=== PATIENT | female | born 1990 | race African-American/Black ===

== ENCOUNTER 2017-03-08 01:43 | Day surgery (SDC) | payer OTHER ==
[2017-03-08 02:06] VITALS: BP 120/70; TEMP 98; BMI 25.9
[2017-03-08] MEDS ORDERED: Promethazine HCl 25 MG/ML VIAL IM/IV PRN (02:19)
[2017-03-08] MEDS ORDERED: Betamet Acet/Betamet Na Ph 30 MG/5 ML VIAL IM SCH (02:30)
[2017-03-08] MEDS ORDERED: Terbutaline Sulfate 1 MG/ML VIAL SC SCH (02:30)
[2017-03-08] MEDS ORDERED: Lactated Ringer's 1,000 ML IV SCH (02:30)
--- NOTE | 2017-03-08 03:00 | PRG ---
DATE OF SERVICE: 03/08/2017 TIME OF EVALUATION: 02:10 TIME OF DICTATION: 02:20 LOCATION: Labor and Delivery in R 6. This is a patient of Migue Smiley M.D. REASON FOR EVALUATION: Suspected contractions at 35 weeks and 5 days. HISTORY OF PRESENT ILLNESS: This is a 26-year-old G3, P2 with a due date of 04/07/2017 placing her at 35 weeks and 5 days, with a history of prior deliveries at 35 weeks and 36 weeks, who sees Dr. Zhao rowan for care. She arrives with the complaint of irregular contractions. She denies vagina l bleeding or leakage of fluid. She denies any headaches or visual changes. She denies any recent trauma. REVIEW OF SYSTEMS: Complete review of systems was done and is otherwise negative, unless specified in the HPI. PAST MEDICAL HISTORY: Negative. ALLERGIES: None. PAST SURGICAL HISTORY: Noncontributory. OBSTETRIC HISTORY: Significant for 2 prior vaginal births, 1 at 35 and the other at 36 weeks. PHYSICAL EXAMINATION: VITAL SIGNS: Her blood pressure was 106/60, heart rate 93-104, respirations are 16, temperature 98. 1. GENERAL: Clinically, she is in no acute distress. ABDOMEN: Soft and nontender and size consistent with dates. Irregular mild contractions were palpa andie. On cervical exam, she is 3-4 cm dilated, about 50% effaced, -2 station. On the external monitor, heart tones are in the 130s to 140s with moderate variability. Contractions every 3 -5 minutes. heart tones are reactive and reassuring. ASSESSMENT: This is a 26-year-old G3, P2 with a due date of 04/07/2016 placing her at 35 weeks and 5 days with possible early labor. PLAN: 1. IV hydration for now. 2. Term x1 as she is only 35 weeks and 5 days. 3. I have ordered Celestone as she is under 36 weeks and 6 days. 4. We will place in Labor and Delivery observation for now. 5. If the patient changes/make cervical progress, we will admit to Dr. Smiley. 6. For now, labor observation with a diagnosis of possible early labor.
[2017-03-08] MEDS ORDERED: Sodium Chloride 0.9% 10 ML ONE (05:12)
--- NOTE | 2017-03-08 05:20 | PRG ---
DATE OF SERVICE: 03/08/2017 FOLLOWUP CELESTONE SCHEDULED In brief, this is a patient who again we were about to release home with a diagnosis of arrested/threatened labor. She is under 36 weeks and 6 days. We did administer Celestone 12 mg x1. The second dose will be given 12 hours from the first which is anytime around [id number] today on 03/08/2017. We have discussed this with the patient. Once again, she has received 1 dose of Celestone, she will receive the second dose of Celestone today at [id number]. This is a patient of Dr. Smiley. Diagnosis is made of threatened arrested labor and we will reassess her later this afternoon when she arrives for her second Celestone injection. RONNYD
--- NOTE | 2017-03-08 12:16 | PRG ---
FOLLOWUP EXAM DATE OF SERVICE: 03/08/2017 TIME: 0505 In brief, this is a patient of Dr. Smiley, who we have been watching for threatened labor. S he is at 35 weeks and 5 days. We watched her for about 3 hours and she states that she feels better . She does not have any evidence of cervical change on exam. Repeat examination reveals a cervix t hat remains unchanged at 3-4 cm. I have reviewed the strip and the heart tones are reactive w ith moderate variability while the contractions were irregular on tocodynamometer, there is no set p attern and they have spaced out after hydration was administered. As the baby is reactive, and ther e has been no cervical globe changer 3 hours, we will discharge the patient home with follow up in [address] Smiley for repeat examination.
== END 2017-03-08 05:40 | disposition home or self-care (01) ==
LOC: L&D/OP 01:43
PROVIDERS: ATTEND Family Medicine
DX: O47.03 False labor before 37 completed weeks of gestation, third trimester (principal); Z3A.35 35 weeks gestation of pregnancy
CPT/HCPCS: 96360; 96361; 96372; 96375; A4216; J0595; J0702; J3105

== ENCOUNTER 2017-09-07 20:48 | Emergency (ER) | payer OTHER ==
[2017-09-07] MEDS ORDERED: Acetaminophen 500 MG TAB ONE (21:35)
[2017-09-07 21:50] LABS: Bilirubin Negative (Negative); Blood, Urine Negative (Negative); Clarity CLOUDY (Clear); Glucose, Urine (Dipstick) Negative (Negative); Leukocyte Small (Negative); Nitrite Negative (Negative); Protein, Urine (Dipstick) Negative (Neg-Trace); Specific Gravity, Urine 1.019 (1.002-1.036)
[2017-09-07 21:53] LABS: Bacteria/HPF None Seen HPF (None Seen); Hyaline Casts/LPF 7-10 HYALINE CAST LPF (0-3 Hyaline); Pathc Cast-AUWi Flag 2.03 (0-2.49); RBC/HPF 0-3 HPF (0-3); Squamous Epithelial 21-50 HPF (0-3)
== END 2017-09-07 22:20 | disposition home or self-care (01) ==
LOC: ERS 20:48
DX: O99.89 Other specified diseases and conditions complicating pregnancy, childbirth and the puerperium (principal); R10.9 Unspecified abdominal pain; O99.619 Diseases of the digestive system complicating pregnancy, unspecified trimester; K08.89 Other specified disorders of teeth and supporting structures; Z3A.00 Weeks of gestation of pregnancy not specified
CPT/HCPCS: 81003; 81015; 87077; 87086; 99283

== ENCOUNTER 2017-11-16 20:48 | Inpatient (IN) | payer OTHER ==
--- NOTE | 2017-11-16 21:18 | PDOC.LDHP ---
Labor and Delivery H&P Chief complaint: other (cramping) HPI: 26 y/o at 30w0d, patient of Dr. Smiley, presents with cramping, low back pain, urinary urgency, and discharge that looks like "snot." She was at work at [employer] when her symptoms started. She states that she is dehydrated. Denies VB, LOF, or decreased FM. ROS neg for HEENT, cv, pulm, gi, gu, neuro, psych, skin, musculoskeletal, or constitutional symptoms other than mentioned above. OB History Details: 3 prior SVDs (32-36 weeks), the last was 8 months ago. Current complications: none Past Medical History: None Current medications: pre-kurt vitamins Previous surgical history: none Allergies/Adverse Reactions: Allergies Allergy/AdvReac Type Severity Reaction Status Date / Time No Known Drug Allergies Allergy Verified 01/17/17 19:30 Social history: none - Physical Exam Vital signs reviewed and normal: yes General: NAD, resting Lungs: nonlabored breathing Abdomen: gravid Extremeties: no edema FHT: category 1 (130s, mod variability, + accels, no decels) [place] contractions every: irregular - Vaginal Exam cm dilated: 4 Effacement: 25% Station: -2 - Assessment L&D Assessment: labor - Plan -: Admit to L&D Indomethacin for tocolysis Celestone for lung maturity MgSO4 for neuroprotection PCN for GBS prophylaxis Consents signed Consult NICU Repeat CBC in am
[2017-11-16 21:21] VITALS: BMI 25.2
[2017-11-16] MEDS ORDERED: Butorphanol Tartrate 1 MG/ML VIAL SLOW IVP PRN (21:52)
[2017-11-16] MEDS ORDERED: Ondansetron HCl/PF 4 MG/2 ML Vial IVP PRN (21:52)
[2017-11-16] MEDS ORDERED: Promethazine HCl 25 MG/ML VIAL IM PRN (21:52)
[2017-11-16 21:57] LABS: Bilirubin Negative (Negative); Blood, Urine Negative (Negative); Clarity CLEAR (Clear); Glucose, Urine (Dipstick) Negative (Negative); Leukocyte Small (Negative); Nitrite Negative (Negative); Protein, Urine (Dipstick) Negative (Neg-Trace); Specific Gravity, Urine 1.016 (1.002-1.036)
[2017-11-16 21:59] LABS: Bacteria/HPF None Seen HPF (None Seen); Hyaline Casts/LPF 0-3 HYALINE CAST LPF (0-3 Hyaline); Pathc Cast-AUWi Flag 0.14 (0-2.49); RBC/HPF 0-3 HPF (0-3); Squamous Epithelial 0-3 HPF (0-3); WBC/HPF 0-3 HPF (0-3)
[2017-11-16] MEDS ORDERED: Calcium Gluc 4.6 MEQ/10 ML (100 MG/ML) SLOW IVP PRN (22:06)
[2017-11-16] MEDS ORDERED: Magnesium Sulfate 20 GM/WATER 500 ML BAG IVPB SCH ×2 (22:15)
[2017-11-16] MEDS ORDERED: Penicillin G Potassium 5 MILL.UNITS in Sodium Chloride 0.9% 100 ML IVPB SCH (22:15)
[2017-11-16 22:19] LABS: FFN Internal QC Analyzer PASS (PASS); FFN Internal QC Cassette PASS (PASS); Fetal Fibronectin POSITIVE (Negative)
[2017-11-16 22:23] LABS: Amphetamine Not Detected (NotDetected); Barbiturates Screen Not Detected (NotDetected); Benzodiazepine Screen Not Detected (NotDetected); Cocaine Metabolite Screen Not Detected (NotDetected); Medtox Control Line Valid? VALID (VALID); Medtox Reader # READER 4; Methadone Not Detected (NotDetected); Methamphetamine Not Detected (NotDetected); Opiate Screen Not Detected (NotDetected); Oxycodone Screen Not Detected (NotDetected); Phencyclidine (PCP) Not Detected (NotDetected); THC/Cannabinoid Screen Not Detected (NotDetected); Tricyclic Screen Not Detected (NotDetected)
[2017-11-16 22:29] LABS: Mean Corpuscular Hemoglobin 22.8 pg (27.0-31.0); Mean Corpuscular Volume 71.3 fL (78.0-98.0); Mean Platelet Volume 8.8 fL (7.4-10.4); Platelet Count 118 thou/uL (130-400); RBC Distribution Width 14.8 % (11.5-14.5); Red Blood Cell (RBC) Count 3.95 mill/uL (4.20-5.40); White Blood Cell (WBC) Count 5.6 thou/uL (4.8-10.8)
[2017-11-16] MEDS ORDERED: Indomethacin 25 mg Capsule PO ONE (22:30)
[2017-11-16] MEDS: Lactated Ringer's 1,000 ML IV SCH (22:47)
[2017-11-16] MEDS: Betamet Acet/Betamet Na Ph 30 MG/5 ML VIAL IM SCH (22:52)
[2017-11-16 23:07] LABS: HBSAg Index 0.18 S/CO (0-0.99); HIV (1/2) Antibody/Antigen Non-Reactive (NonReactive); HIV 1/2 INDEX 0.17 S/CO (<1.00); Hep B Surf Ag Non-Reactive S/CO (NonReactive); Syphilis Antibody Nonreactive (Nonreactive); Syphilis Antibody Index 0.03 S/CO (<1.00 Non-Reactive)
[2017-11-16] MEDS: Magnesium Sulfate 20 gm/500 ml 20 GM/500 ML BAG IVPB SCH (23:27)
[2017-11-17] MEDS: Acetaminophen 500 MG TAB PO PRN ×2 (00:46→10:58)
[2017-11-17] MEDS: Penicillin G 2.5 MILL.units 2.5 MILL.UNITS in Premix Bag 1 BAG IVPB SCH ×6 (01:25→21:28)
[2017-11-17] MEDS: Indomethacin 25 mg Capsule PO SCH ×6 (01:25→21:30)
[2017-11-17] MEDS: Lactated Ringer's 1,000 ML IV SCH ×2 (05:07→21:29)
[2017-11-17 06:11] LABS: #Lymphocytes 0.7 thou/uL (1.20-3.40); #Monocytes 0.1 thou/uL (0.11-0.59); #Neutrophils 4.6 thou/uL (1.40-6.50); %Basophils 0.1 % (0.0-1.0); %Eosinophils 0.2 % (0.0-10.0); %Lymphocytes 13.1 % (21.0-51.0); %Monocytes 1.1 % (0.0-10.0); %Neutrophils 85.5 % (42.0-75.0); Hemoglobin 8.6 g/dL (12.0-16.0); Mean Corpuscular HGB CONC 31.1 g/dL (32.0-36.0); Mean Corpuscular Hemoglobin 22.1 pg (27.0-31.0); Mean Platelet Volume 8.8 fL (7.4-10.4); Platelet Count 109 thou/uL (130-400); RBC Distribution Width 14.7 % (11.5-14.5); Red Blood Cell (RBC) Count 3.87 mill/uL (4.20-5.40); White Blood Cell (WBC) Count 5.3 thou/uL (4.8-10.8)
[2017-11-17] MEDS: Magnesium Sulfate 20 gm/500 ml 20 GM/500 ML BAG IVPB SCH (07:30)
--- NOTE | 2017-11-17 08:55 | ULT ---
OB ULTRASOUND: Date: INDICATION: Assess size, dates, and position. FINDINGS: There is a single, viable intrauterine . Gestational age by ultrasound is 30 weeks/6 days. B iometry measurements are consistent as below. BPD: 32 weeks/1 day HC: 31 weeks/1 day AC: 30 weeks/2 days FL: 30 weeks/0 days EFW: 1564 gm. Amniotic Fluid: Appears adequate. LILIA recorded at 13.0 cm. Heart Rate: 163 beats/minute. Placenta: Fundal and to the right. Position: Vertex. anatomy survey shows unremarkable intracranial contents as visualized. The lateral ventricles a re not adequately imaged. The spine, bladder, kidneys, four chamber heart, stomach, three vessel cord , and facial features were imaged and appear unremarkable. IMPRESSION: 30 weeks/6 days gestation by ultrasound measurement. No abnormality identified. POS: [place]
[2017-11-17] MEDS: metroNIDAZOLE 500 MG TAB PO SCH ×2 (09:29→21:30)
--- NOTE | 2017-11-17 18:58 | PDOC.LDPN ---
Labor & Delivery Progress Note - Objective Vital signs reviewed and normal: yes General: NAD Uterine fundus: non tender FHT: category 1 - Assessment (1) Threatened labor Code(s): O47.00 - FALSE LABOR BEFORE 37 COMPLETED WEEKS OF GEST, UNSP TRI Current Visit: Yes Status: Acute Plan: continue plan of care, other (Patient seen at bedside. Second celestone will be tonight at 2230. Indocin limited to 24 hours of use (stop tomorrow AM). May stop mag tomorrow. Doing well)
[2017-11-17] MEDS: Betamet Acet/Betamet Na Ph 30 MG/5 ML VIAL IM SCH (22:26)
--- NOTE | 2017-11-17 23:00 | PDOC.EVN ---
Event Note - Event Note Event Note: Magso4 ok to stop as no further evidence of active contractions. Indocin to stop at 0100 as well.
[2017-11-18] MEDS: Indomethacin 25 mg Capsule PO SCH (05:12)
[2017-11-18] MEDS: Lactated Ringer's 1,000 ML IV SCH (05:12)
--- NOTE | 2017-11-18 07:12 | PDOC.EVN ---
Event Note - Event Note Event Note: DISCHARGE NOTE Admission Date: 11/16/17 Discharge date: 11/18/17 Diagnosis: Arrested labor at 30 weeks, HX Interventions: Steroids, Magnesium for neuroprotection, indocin tocolytics, monitoring Course: Patient was admitted y Dr Vieira on 11/16/17 in the PM for threatened PTL. Exam was 4cm. Indocin used for first 24 hours, mag laos given with PCN due to EGA. Celestone given as well. I evaluated the patient on 11/17/17 and 11/18/17. On the morning of 11/18/17, as there was no further contractions on toco and clinically stable, we elected to discharge her home as she had arrested contractions without evidence of ROM. I instructed her to follow up with Dr johsnton in 48 hours Patient given instructions with the nurses at bedside. Questions answered.
--- NOTE | 2017-11-18 07:51 | PDOC.EVN ---
Event Note - Event Note Event Note: Home with Flagyl 500 po BID for BV Dx here this admit
--- NOTE | 2017-11-18 07:55 | PDOC.EVN ---
Event Note - Event Note Event Note: Mild thrombocytopenia noted from first labs...it is still >100,000 Follow with recheck in later point
[2017-11-18 08:01] VITALS: BP 98/56; TEMP 98.3
[2017-11-18 16:40] LABS: Chlamydia by PCR Not Detected (NotDetected); GC by PCR Not Detected (NotDetected)
== END 2017-11-18 08:30 | disposition home or self-care (01) | DRG 778 ==
LOC: L&D/OP 20:48 → L&D 11-17 06:09
PROVIDERS: ADMIT Family Medicine; ATTEND Family Medicine
DX: O60.03 Preterm labor without delivery, third trimester (principal); Z3A.30 30 weeks gestation of pregnancy
CPT/HCPCS: 36415; 51701; 51702; 76815; 80306; 81001; 82731; 85025; 85027; 86780; 86850; 86900; 86901; 87340; 87389; 87480; 87491; 87510; 87591; 87660; 99285; J0702; J2540; J3475; J7050

== ENCOUNTER 2018-01-05 01:13 | Inpatient (IN) | payer OTHER ==
[2018-01-05] MEDS ORDERED: Penicillin G Potassium 5 MILL.UNITS VIAL ONE (01:36)
[2018-01-05] MEDS ORDERED: NS / Oxytocin 40 units/1000ml 1,000 ML IV PRN (01:37)
[2018-01-05] MEDS ORDERED: Ibuprofen 800 MG TAB PO PRN (01:37)
[2018-01-05] MEDS ORDERED: Acetaminophen/Codeine 30-300mg Tablet PO PRN ×3 (01:37→06:57)
[2018-01-05] MEDS ORDERED: Butorphanol Tartrate 1 MG/ML VIAL SLOW IVP PRN (01:37)
[2018-01-05] MEDS ORDERED: Lidocaine 1% (PF) 30 ML VIAL SC PRN (01:37)
[2018-01-05] MEDS ORDERED: Promethazine HCl 25 MG/ML VIAL IM PRN (01:37)
[2018-01-05] MEDS ORDERED: Ondansetron HCl/PF 4 MG/2 ML Vial IVP PRN ×2 (01:37→06:57)
[2018-01-05] MEDS ORDERED: Lidocaine 1% (PF) 30 ML VIAL ONE (01:44)
[2018-01-05] MEDS ORDERED: Penicillin G Potassium 5 MILL.UNITS in Sodium Chloride 0.9% 100 ML IVPB SCH (01:45)
[2018-01-05 01:50] LABS: Hemoglobin 9.3 g/dL (12.0-16.0); Mean Corpuscular HGB CONC 33.1 g/dL (32.0-36.0); Mean Corpuscular Hemoglobin 22.8 pg (27.0-31.0); Mean Corpuscular Volume 68.9 fL (78.0-98.0); Mean Platelet Volume 9.9 fL (7.4-10.4); Platelet Count 119 thou/uL (130-400); RBC Distribution Width 15.7 % (11.5-14.5); Red Blood Cell (RBC) Count 4.07 mill/uL (4.20-5.40)
[2018-01-05] MEDS ORDERED: Lactated Ringer's 1,000 ML IV SCH ×2 (02:00→03:00)
[2018-01-05] MEDS ORDERED: Methylergonovine 0.2 MG/ML VIAL ONE (02:00)
[2018-01-05] MEDS ORDERED: Misoprostol 200 MCG TAB ONE ×2 (02:00→02:33)
--- NOTE | 2018-01-05 02:03 | PDOC.LDHP ---
Labor and Delivery H&P HPI: 27 yo BF c/o SROM and UCS. Current gestational age (weeks): 37 Dating criteria: last menstrual period Grav: 4 Para: 3 OB History Details: PNC with Dr. Smiley. Current complications: none Abnormal US findings: No Past Medical History: none reported Current medications: pre-kurt vitamins Previous surgical history: none Allergies/Adverse Reactions: Allergies Allergy/AdvReac Type Severity Reaction Status Date / Time No Known Drug Allergies Allergy Verified 01/17/17 19:30 Social history: none - Physical Exam Vital signs reviewed and normal: yes General: breathing through contractions Abdomen: gravid FHT: category 1 [place] contractions every: UCs q 2-3 - Vaginal Exam cm dilated: 8 Effacement: 100% - OB Labs Blood type: unknown RH: unknown Antibody Screen: unknown HIV: unknown RPR: unknown HEPSAg: unknown 1 hour GCT: unknown GBS: unknown - Assessment L&D Assessment: term patient in labor (Told to manage by Dr. Smiley. No PN records available. Expect )
--- NOTE | 2018-01-05 02:12 | PDOC.OPDEL ---
OB Operative/Delivery Note Delivery Dr/Surgeon: Payton Pre-Delivery Diagnosis: active labor Procedure/Post Delivery Dx: spontaneous vaginal delivery Weeks gestation: 37 - Additional Findings/Plan Placenta delivered: spontaneous Repaired Obstetrical Laceration: other (superficial periurethral not repaired) Estimated blood loss: 245 Compilations/Other Findings: Rapid progress. of viable male. Apgars 9/9. Post delivery plan: routine recovery
[2018-01-05 02:30] LABS: HBSAg Index 0.17 S/CO (0-0.99); Hep B Surf Ag Non-Reactive S/CO (NonReactive)
--- NOTE | 2018-01-05 02:43 | PDOC.EVN ---
Event Note - Event Note Event Note: CTSP for bleeding. Pelvic exam shows clots in TIAGO, removed. Cytotec 800 mg placed OR. Pitocin drip infusing. Pt. uncooperative for exam and uterine massage. Observe closely.
[2018-01-05] MEDS: Penicillin G 2.5 MILL.units 2.5 MILL.UNITS in Premix Bag 1 BAG IVPB SCH ×4 (05:51→17:37)
[2018-01-05 05:59] LABS: Syphilis Antibody Nonreactive (Nonreactive); Syphilis Antibody Index 0.03 S/CO (<1.00 Non-Reactive)
[2018-01-05] MEDS ORDERED: Benzocaine/Menthol 20-0.5% 60 ML CAN TOP PRN (06:57)
[2018-01-05] MEDS ORDERED: Methylergonovine 0.2 MG/ML VIAL IM PRN (06:57)
[2018-01-05] MEDS ORDERED: Milk Of Magnesia 30 ML UDCUP PO PRN (06:57)
[2018-01-05] MEDS ORDERED: NS / Oxytocin 40 units/1000ml 1,000 ML IV SCH (06:57)
[2018-01-05] MEDS ORDERED: Bisacodyl 10 MG SUPP PR PRN (06:57)
[2018-01-05] MEDS ORDERED: Adacel (T-DAP) 0.5 ML VIAL IM ONE (06:57)
[2018-01-05] MEDS ORDERED: Preparation H Ointment 28 GM TUBE PR PRN (06:57)
[2018-01-05] MEDS ORDERED: Lanolin Ointment 7 GM TUBE TOP PRN (06:57)
[2018-01-05] MEDS ORDERED: Measles/Mumps/Rubella 10 MCG/0.5 ML VIAL SC ONE (06:57)
[2018-01-05] MEDS ORDERED: diphenhydrAMINE 25 MG CAP PO PRN (06:57)
[2018-01-05] MEDS ORDERED: Ibuprofen 800 MG TAB PO SCH (06:57)
[2018-01-05] MEDS ORDERED: Zolpidem Tartrate 5 MG TAB PO PRN (06:57)
[2018-01-05 08:01] LABS: HIV (1/2) Antibody/Antigen Non-Reactive (NonReactive); HIV 1/2 INDEX 0.13 S/CO (<1.00)
[2018-01-05] MEDS: Ibuprofen 800 MG TAB PO SCH ×3 (08:51→21:42)
[2018-01-05] MEDS: Ferrous Sulfate 325 MG TAB PO SCH ×2 (08:51→17:37)
[2018-01-05] MEDS: Docusate Calcium (SURFAK) 240 MG CAP PO SCH ×2 (08:53→21:42)
--- NOTE | 2018-01-06 00:36 | PDOC.PP ---
Post Progress Note Post Day #: 1 Subjective: Doing well PO intake tolerated: yes Flatus: yes Ambulation: yes Vital Signs (12 hours) Temp Pulse Resp BP 01/05/18 16:54 97.9 F 83 20 128/64 01/05/18 16:15 98.3 F 73 20 01/05/18 12:43 98.3 F 73 20 Weight Weight 150 lb - Physical Examination General: NAD Cardiovascular: no m/r/g Respiratory: clear to auscultation bilaterally Abdominal: + bowel sounds, lochia, no distention Extremities: negative homans (B) Neurological: no gross focal deficits Psychiatric: A&Ox3, normal affect Result Diagrams: 01/05/18 01:35 Additional Labs: Post Labs Blood Type B POSITIVE 01/05/18 01:35 Hep Bs Antigen Non-Reactive S/CO (NonReactive) 01/05/18 01:35 (1) Vaginal delivery Code(s): O80 - ENCOUNTER FOR FULL-TERM UNCOMPLICATED DELIVERY Status: Acute - Assessment/Plan PPD 1 s/p , used cytotec pp for initial PP Bleeding. Last HCT was 28 and HCT pending. Psatient desires stay until PPD2 which will be tomorrow Sunday 01/07. Routine PP care for now. Dr Smiley to assume care Sunday (expectedly ).
[2018-01-06] MEDS: Penicillin G 2.5 MILL.units 2.5 MILL.UNITS in Premix Bag 1 BAG IVPB SCH ×6 (01:46→23:15)
[2018-01-06 04:28] LABS: Hemoglobin 7.9 g/dL (12.0-16.0); Mean Corpuscular HGB CONC 31.9 g/dL (32.0-36.0); Mean Corpuscular Hemoglobin 22.6 pg (27.0-31.0); Mean Corpuscular Volume 70.7 fL (78.0-98.0); Mean Platelet Volume 9.4 fL (7.4-10.4); Platelet Count 114 thou/uL (130-400); RBC Distribution Width 15.4 % (11.5-14.5); Red Blood Cell (RBC) Count 3.51 mill/uL (4.20-5.40); White Blood Cell (WBC) Count 6.2 thou/uL (4.8-10.8)
[2018-01-06] MEDS: Ibuprofen 800 MG TAB PO SCH ×3 (05:55→21:20)
--- NOTE | 2018-01-06 08:05 | PDOC.EVN ---
Event Note - Event Note Event Note: AM HCT was 24, from 28. No active VB
[2018-01-06] MEDS: Ferrous Sulfate 325 MG TAB PO SCH ×2 (09:43→16:44)
[2018-01-06] MEDS: Docusate Calcium (SURFAK) 240 MG CAP PO SCH ×2 (09:44→21:20)
[2018-01-07] MEDS: Ibuprofen 800 MG TAB PO SCH (04:26)
[2018-01-07] MEDS: Penicillin G 2.5 MILL.units 2.5 MILL.UNITS in Premix Bag 1 BAG IVPB SCH ×3 (04:26→09:27)
[2018-01-07] MEDS: Acetaminophen/Codeine 30-300mg Tablet PO PRN ×2 (06:20→11:25)
[2018-01-07 07:39] VITALS: BP 119/66; TEMP 97.9
[2018-01-07] MEDS: Docusate Calcium (SURFAK) 240 MG CAP PO SCH (09:27)
[2018-01-07] MEDS: Ferrous Sulfate 325 MG TAB PO SCH (09:27)
== END 2018-01-07 13:44 | disposition home or self-care (01) | DRG 775 ==
LOC: L&D/OP 01:13 → EEVIPCON 01:40 → L&D 01:40 → 3SW 06:17
PROVIDERS: ADMIT Obstetrics & Gynecology; ATTEND Obstetrics & Gynecology
PROC: 10E0XZZ Delivery of Products of Conception, External Approach (ICD-10-PCS; principal; 2018-01-05)
DX: O99.824 Streptococcus B carrier state complicating childbirth (principal); Z3A.37 37 weeks gestation of pregnancy; Z37.0 Single live birth; O71.82 Other specified trauma to perineum and vulva
CPT/HCPCS: 36415; 85027; 86780; 86850; 86900; 86901; 87340; 87389; 99285; J0595; J2001; J2210; J2540

== ENCOUNTER 2018-03-26 20:43 | Observation (INO) | payer SELFPAY, OTHER ==
[2018-03-26] MEDS ORDERED: Ondansetron ODT 4 MG TAB SL PRN (22:39)
[2018-03-26] MEDS ORDERED: Ondansetron PF 4 MG/2 ML Vial IVP PRN (22:39)
[2018-03-26] MEDS ORDERED: Acetaminophen 325 MG TAB PO PRN (23:44)
[2018-03-26] MEDS ORDERED: Clindamycin/D5W 900 MG in Premix Bag 1 BAG IVPB SCH (23:59)
[2018-03-27] MEDS: Sodium Chloride 0.9% 1,000 ML IV SCH ×4 (00:14→23:07)
[2018-03-27] MEDS: Ibuprofen 800 MG TAB PO SCH ×4 (00:48→23:06)
[2018-03-27] MEDS: Clindamycin/D5W 900 MG in Premix Bag 1 BAG IVPB SCH ×4 (03:17→20:39)
[2018-03-27 05:04] LABS: #Eosinphils 0.1 thou/uL (0.0-0.7); #Lymphocytes 1.3 thou/uL (1.20-3.40); #Monocytes 0.4 thou/uL (0.11-0.59); #Neutrophils 3.4 thou/uL (1.40-6.50); %Basophils 0.1 % (0.0-1.0); %Lymphocytes 24.5 % (21.0-51.0); %Monocytes 7.3 % (0.0-10.0); Hemoglobin 8.4 g/dL (12.0-16.0); Mean Corpuscular HGB CONC 30.3 g/dL (32.0-36.0); Mean Platelet Volume 9.4 fL (7.4-10.4); Platelet Count 163 thou/uL (130-400); RBC Distribution Width 16.6 % (11.5-14.5); Red Blood Cell (RBC) Count 3.63 mill/uL (4.20-5.40); White Blood Cell (WBC) Count 5.1 thou/uL (4.8-10.8)
[2018-03-27 05:20] LABS: Anion Gap 8 mmol/L (10-20); BUN (Urea Nitrogen) 12 mg/dL (7.0-18.7); Calc. Creatinine Clearance 0 mL/min (70-130); Calcium 8.1 mg/dL (7.8-10.44); Carbon Dioxide 23 mmol/L (22-29); Chloride 107 mmol/L (98-107); Estimated GFR-MDRD Greater than 90; Glucose 80 mg/dL (70-105); Potassium 3.2 mmol/L (3.5-5.1); Sodium 135 mmol/L (136-145)
[2018-03-27] MEDS: Morphine 2 MG/ML SYRINGE SLOW IVP PRN ×2 (06:05→18:04)
[2018-03-27] MEDS: Ferrous Sulfate 325 MG TAB PO SCH ×2 (08:40→17:03)
--- NOTE | 2018-03-27 08:51 | HP ---
CHIEF COMPLAINT: Swollen right face. HISTORY OF PRESENT ILLNESS: This is a 27-year-old female with no significant past medical history pr esenting with chief complaint of right facial swelling, which started on the morning of the day of is admission. Per the patient, she woke up and she saw that her right side of her face was swollen. The patient stated that she had a tooth throbbing the night prior and the patient took Aleve which h elped. The patient then woke up and saw that the face was swollen, so the patient went to [facility] ED and the patient was seen and per electronic medical records and medical staff there were anjelica e intramuscular abscess which was seen after CT scan of the face was done. I&D was performed at the ED and a small amount of pus was drained. The patient was then given clindamycin and the patient was transferred to the hospital to be further evaluated. At this time, the patient states that she is h aving right-sided pain. There is throbbing pain. Nothing seems to help with the pain. At this time the patient is being admitted to medical floor to be further evaluated. REVIEW OF SYSTEMS: Positive for right-sided facial pain, tooth and gum pain, otherwise as documented in the HPI. All other systems were reviewed and are negative at this time. PAST MEDICAL HISTORY: No significant past medical history. PAST SURGICAL HISTORY: The patient does not have any surgical history. PSYCHIATRIC HISTORY: The patient does not have any psych history. SOCIAL HISTORY: The patient denies any alcohol use. Lives at home with , has had a new baby. Denies any smoking history. Denies any illicit drug use. FAMILY HISTORY: Reviewed and noncontributory to this visit. ALLERGIES: No known drug allergies at this time. MEDICATIONS: The patient takes no medications. PHYSICAL EXAMINATION: VITAL SIGNS: The patient's blood pressure is 124/83, pulse of 95, respiratory rate of 18, temperatur e of 98.8, O2 sat of 98. GENERAL: The patient is alert, oriented x3, not in acute distress. Patient is able to speak in full sentences. HEENT: Normocephalic, atraumatic. Pupils are equally round and reactive to light. Extraocular move ments are intact. The patient does have a right-sided facial swelling with tenderness with palpation . There is no obvious erythema noted and there is no obvious drainage that can be noted as well. NECK: No JVD, extensive right-sided neck swelling; however, the patient is able to have range of mot ion. Trachea is midline. RESPIRATORY: Clear to auscultation bilateral. No wheezing, no rales, no rhonchi is appreciated. CARDIAC: Positive S1, S2, regular rate and rhythm. ABDOMEN: Soft, nontender, nondistended, positive bowel sounds in all quadrants. EXTREMITIES: The patient has over 5/5 upper extremity strength, 5/5 lower extremity strength, 2+ pul ses bilaterally at the upper and lower extremity. No edema noted. NEUROLOGIC: Cranial nerves II-XII grossly intact. No neurologic deficit noted. SKIN: Warm, dry, and intact. Referred to neck description and face description. IMAGING: CT scan which was done in the [place] ER showed the patient does have facial cellul itis. ASSESSMENT AND PLAN: 1. This is a 27-year-old female being admitted for facial cellulitis. At this point, the patient prakash s been started on clindamycin. We are going to continue clindamycin. We have consulted Oral Surgery to examine the patient. We will continue to manage the patient supportively by giving patient pain medications. The patient is currently n.p.o. 2. Deep venous thrombosis and gastrointestinal prophylaxis.
[2018-03-27] MEDS ORDERED: Potassium Chloride 20 MEQ TAB PO SCH (17:45)
[2018-03-27 19:03] LABS: Iron 17 ug/dL (50-170); Iron Binding Capacity, Total 335 mcg/dL (265-497)
--- NOTE | 2018-03-27 19:30 | PRG ---
DATE OF SERVICE: 03/27/2018 SUBJECTIVE: The patient was seen and examined at bedside. She feels somewhat better. She is able t o eat without any choking. Her face is still very swollen. She was seen by oral surgeon. Recommend ed to continue IV antibiotics and transfer her to his office for a surgical procedure in the morning. OBJECTIVE: VITAL SIGNS: Blood pressure is 101/64, pulse is 102, temperature is 98.5, respiratory rate is 16, an d O2 saturation is . HEENT: Atraumatic, normocephalic. Right side of the face is very swollen. NECK: Supple. LUNGS: Clear. HEART: S1, S2 normal. No S3, S4, or murmur. ABDOMEN: Soft and nontender. Bowel sounds are present. No organomegaly. EXTREMITIES: No clubbing, cyanosis, or edema. NEUROLOGIC: She is alert and oriented x4. There is not any motor or sensory deficits present. Cran ial nerves are intact. LABORATORY DATA: Showed white count of 5.1, hemoglobin of 8.4, hematocrit 27.6, MCV is 76.0, platele t count 163. Sodium of 135, potassium 3.2, chloride 107, CO2 of 23, BUN 12, creatinine 0.62, calcium 8.1. IMPRESSION: 1. Swelling of the right side of the face with some facial cellulitis. The patient was seen by oral surgeon who recommends to give IV antibiotics and send her to his office straight tomorrow morning. 2. Microcytic anemia, most likely the patient has some thalassemia but this will be addressed with h er and she will follow up with her primary care physician on that issue. 3. Hypokalemia, to be supplemented. PLAN: As mentioned above. Continue IV clindamycin. Continue ibuprofen and check her hemoglobin bre ctrophoresis and iron studies and supplement her with potassium chloride 40 mEq x2, and she will be d ischarged tomorrow morning.
[2018-03-28] MEDS: Clindamycin/D5W 900 MG in Premix Bag 1 BAG IVPB SCH ×2 (02:18→08:17)
[2018-03-28] MEDS: Morphine 2 MG/ML SYRINGE SLOW IVP PRN (03:20)
[2018-03-28 06:17] LABS: #Eosinphils 0.1 thou/uL (0.0-0.7); #Lymphocytes 1.4 thou/uL (1.20-3.40); #Monocytes 0.4 thou/uL (0.11-0.59); #Neutrophils 2.5 thou/uL (1.40-6.50); %Basophils 0.2 % (0.0-1.0); %Lymphocytes 32.7 % (21.0-51.0); %Monocytes 8.6 % (0.0-10.0); %Neutrophils 56.6 % (42.0-75.0); Hemoglobin 8.2 g/dL (12.0-16.0); Mean Corpuscular HGB CONC 30.7 g/dL (32.0-36.0); Mean Corpuscular Hemoglobin 23.2 pg (27.0-31.0); Mean Corpuscular Volume 75.5 fL (78.0-98.0); Mean Platelet Volume 9.5 fL (7.4-10.4); Platelet Count 185 thou/uL (130-400); RBC Distribution Width 16.7 % (11.5-14.5); Red Blood Cell (RBC) Count 3.52 mill/uL (4.20-5.40); White Blood Cell (WBC) Count 4.4 thou/uL (4.8-10.8)
[2018-03-28 07:09] LABS: Anion Gap 8 mmol/L (10-20); BUN (Urea Nitrogen) 11 mg/dL (7.0-18.7); Calc. Creatinine Clearance 0 mL/min (70-130); Calcium 8.3 mg/dL (7.8-10.44); Carbon Dioxide 23 mmol/L (22-29); Chloride 110 mmol/L (98-107); Estimated GFR-MDRD Greater than 90; Glucose 81 mg/dL (70-105); Potassium 3.9 mmol/L (3.5-5.1); Sodium 137 mmol/L (136-145)
--- NOTE | 2018-03-28 07:44 | DIS ---
DATE OF DISCHARGE: 03/28/2018 FINAL DIAGNOSES: 1. Facial cellulitis and swelling related to a tooth abscess. 2. Microcytic anemia, iron deficiency. HOSPITAL COURSE: The patient is a 27-year-old female with no significant past medic al history who presented with chief complaints of right facial swelling and tooth throbbing in the ri ght side of her jaw. She presented to [facility] Emergency Room where a CT scan of the face was done and it showed an abscess. I&D was performed at the Emergency Room and small denis unt of pus was drained. The patient was given clindamycin and she ended up in our emergency room, sh e was placed on IV clindamycin and she was seen by oral surgeon, Dr. Rafael Nava who recommended to continue IV antibiotics and set her up for morning appointment at his office n.p.o. for tooth ext raction and surgical procedure. The patient is doing quite well. The swelling is significantly impr tyrone. PHYSICAL EXAMINATION: VITAL SIGNS: Blood pressure is 111/77, temperature 99.2, pulse 102, respiratory rate is 16, O2 satur ation 96% on room air. HEENT: She still has significant swelling of the right side of face. Eyes are PERRLA. Sclerae guru cteric. NECK: Supple. LUNGS: Clear. CARDIOVASCULAR: S1, S2 normal, no S3, no S4, no murmur. ABDOMEN: Soft, nontender. Bowel sounds are present, no organomegaly. NEUROLOGIC: She is alert and oriented x4. There is not any sensory or motor deficits present. Cran ial nerves are intact. She is discharged home in good condition, but she will go directly to Dr. Nava's office for surgi eduin procedure to extract the tooth and probably get more drainage from the abscess. ACTIVITY: As tolerated. FOLLOWUP: She will follow up with her primary care physician in 1 week. MEDICATIONS AT THE TIME OF DISCHARGE: None. The patient was seen and examined before she was discharged. Discharge time is less than 30 minutes.
[2018-03-28] MEDS: Ferrous Sulfate 325 MG TAB PO SCH (08:17)
[2018-03-28] MEDS: Sodium Chloride 0.9% 1,000 ML IV SCH (08:18)
[2018-03-28] MEDS: Ibuprofen 800 MG TAB PO SCH (08:18)
[2018-03-28 08:23] VITALS: BP 109/72; TEMP 98.5
[2018-04-01 15:23] LABS: Hemoglobin A 97.8 % (96.4-98.8); Hemoglobin A2 2.2 % (1.8-3.2); Hemoglobin F 0 % (0.0-2.0); Interpretation Note: (.)
== END 2018-03-28 09:40 | disposition home or self-care (01) ==
LOC: ERS 20:43 → T4-B 22:46
PROVIDERS: ADMIT Internal Medicine; ATTEND Internal Medicine
DX: L03.211 Cellulitis of face (principal)
CPT/HCPCS: 36415; 80048; 82728; 83021; 83540; 83550; 85025; 96361; 96365; 96366; 96375; 96376; 99285; G0378; J2270; J3490

== ENCOUNTER 2018-06-27 15:16 | Outpatient (CLI) | payer OTHER ==
--- NOTE | 2018-06-27 16:15 | RAD ---
CHEST 2 VIEWS: HISTORY: Evaluate for tuberculosis. FINDINGS: Cardiac silhouette and pulmonary vasculature are unremarkable. Mediastinum is midline. No confluent airspace consolidation, pneumothorax, or significant pleural fluid. Posterior costophrenic angles a re obscured on the lateral view. IMPRESSION: No active cardiopulmonary abnormalities are demonstrated. POS: [facility]
== END 2018-06-27 15:17 | disposition home or self-care (01) ==
LOC: BICRAD 15:16
PROVIDERS: ATTEND Family Medicine
DX: Z03.89 Encounter for observation for other suspected diseases and conditions ruled out (principal)
CPT/HCPCS: 71046

== ENCOUNTER 2018-08-06 11:02 | Outpatient (CLI) | payer MEDICAID ==
--- NOTE | 2018-08-06 12:42 | ULT ---
OB ULTRASOUND: HISTORY: Evaluate anatomy. FINDINGS: Multiple longitudinal and transverse images of an intrauterine were obtained using a multih ertz curvilinear transducer. Real-time, color flow, and M-mode sonography demonstrates a viable intr auterine with a fetus in a head toward maternal left transverse presentation. The placenta is anterior. anatomic survey including intracranial structures, 4-chamber heart, stomach, kidneys, bladder, spine, lips and nose, upper and lower extremities, as well as 3-vessel cord is grossly unremarkable. BIOMETRICS: Biparietal diameter 46 mm, 19 weeks 1 day Head circumference 168 mm, 19 weeks 3 days Abdominal circumference 143 mm, 19 weeks 4 days Femur length 31 mm, 19 weeks 5 days This gives the fetus an overall gestational age of 19 weeks 3 days with an estimated date of delivery of 12/28/2018. Estimated weight is 304 gm +/- 45 gm. Amniotic fluid index measures 12.8 cm. Cardiac activity measures 150 b.p.m. IMPRESSION: Viable intrauterine estimated gestational age 19 weeks 3 days. POS: [facility]
== END 2018-08-06 11:03 | disposition home or self-care (01) ==
LOC: ULT 11:02
PROVIDERS: ATTEND Nurse Practitioner
DX: O09.92 Supervision of high risk pregnancy, unspecified, second trimester (principal); O09.212 Supervision of pregnancy with history of pre-term labor, second trimester; Z3A.19 19 weeks gestation of pregnancy
CPT/HCPCS: 76805

== ENCOUNTER 2019-03-25 11:50 | Emergency (ER) | payer MEDICAID | END 2019-03-25 13:18 | disposition home or self-care (01) | LOC: ERS 11:50 | DX: H00.14 Chalazion left upper eyelid (principal) | CPT/HCPCS: 99283 ==